=== PATIENT | female | born 1990 | race Two or more races ===

== ENCOUNTER 2020-07-08 09:46 | Emergency (ER) | payer OTHER ==
[~2020-07-08] VITALS: Ht 154.9 cm; Wt 59.0 kg
[2020-07-08] MEDS ORDERED: KETO10TA2 PO (13:18)
[2020-07-08] MEDS ORDERED: NORFLEX100MG PO (13:18)
== END 2020-07-08 14:10 | disposition home or self-care (01) ==
LOC: ER 09:46
DX: S30.0XXA Contusion of lower back and pelvis, initial encounter (principal); W18.39XA Other fall on same level, initial encounter; Y93.89 Activity, other specified; Y92.098 Other place in other non-institutional residence as the place of occurrence of the external cause; Y99.8 Other external cause status